=== PATIENT | female | born 1975 | race Caucasian/White ===

== ENCOUNTER 2016-11-18 13:20 | Emergency (ER) | payer SELFPAY ==
[2016-11-18 13:23] VITALS: BP 109/55; PULSE 95; TEMP 98.2; BMI 38.0
--- NOTE | 2016-11-18 13:53 | PDOC ---
History of Present Illness - General Chief Complaint: Injury Stated Complaint: LT KNEE PAIN Time Seen by Provider: 11/18/16 13:42 History Source: Parent(s) Exam Limitations: No Limitations - History of Present Illness Initial Comments: 11/18/16 14:20 CHIEF COMPLAINT: Left knee pain, status post fall HISTORY OF PRESENT ILLNESS: She is otherwise healthy 41-year-old female, denies any significant medical history currently on no medication presents [facility] department with a left knee pain states she slipped on water in her house and fell onto left knee now with left anterior knee pain. Patient denies twisting, there is no erythema edema, no bruising lacerations were deformity. Patient able to ambulate with a limp. REVIEW OF SYSTEMS: GENERAL: Afebrile, A&O x3 RESPIRATORY: No cough, wheezing, or hemoptysis. CARDIAC: No CP or SOB MUSCULOSKELETAL: Pain to left anterior knee pain. SKIN : No erythema, no edema, no bruising, no deformity. NEUROLOGICAL: Denies any numbness or tingling. PHYSICAL EXAM: GENERAL: The patient is awake, alert, and fully oriented, in no acute distress. HEAD: Normal with no signs of trauma. RESPIRATORY: Lungs clear bilaterally no rhonchi, rales, or wheezes CARDIAC: S1-S2 audible, no murmur rub or gallop EXTREMITIES: There is good range of motion to left knee with associated pain, no fluid appreciated, no bulge sign. No pain to superior or inferior patella. Negative drop test. Negative posterior leg test. No joint laxity noted, no ecchymosis, no deformity, no abrasions ,no edema. +3 popliteal pulse. Negative Homans sign. No calf pain or tenderness, no erythema or edema. MUSCULOSKELETAL: No spinal point tenderness. SKIN: Warm, Dry, normal turgor, no erythema, no edema no bruising. Past History - Past Medical History Allergies/Adverse Reactions: Allergies Allergy/AdvReac Type Severity Reaction Status Date / Time No Known Allergies Allergy Verified 11/18/16 13:23 Home Medications: Ambulatory Orders No Home Medications 0 dose .ROUTE UTDICT 10/02/12 Ibuprofen [Motrin -] 600 mg PO TID #21 tablet 11/18/16 - Suicide/Smoking/Psychosocial Hx Smoking Status: No Smoking History: Never smoked Number of Cigarettes Smoked Daily: 0 Hx Alcohol Use: No Drug/Substance Use Hx: No *Physical Exam - Vital Signs Last Vital Signs Temp Pulse Resp BP Pulse Ox 98.2 F 95 H 20 109/55 98 11/18/16 13:20 11/18/16 13:20 11/18/16 13:20 11/18/16 13:20 11/18/16 13:20 Medical Decision Making - Medical Decision Making 11/18/16 14:23 A/P: Patient here for evaluation of left knee pain status post fall. No deformity noted to knee however patient complains of pain with movement. Will perform x-ray to rule out acute fracture however low suspicion. Urine sent. X-rays negative for acute fracture we'll DC patient home, anti-inflammatories, follow-up with orthopedics in 1 week pain persists. Ice and elevate when at rest I discussed the physical exam findings, ancillary test results and final diagnoses with the patient. I answered all of the patient's questions. The patient was satisfied with the care received and felt comfortable with the discharge plan and treatment plan. The patient will call to arrange follow-up and will return to the Emergency Department with any new, persisting or worsening symptoms. *DC/Admit/Observation/Transfer Diagnosis at time of Disposition: Accidental fall Qualifiers: Encounter type: initial encounter Qualified Code(s): W19.XXXA - Unspecified fall, initial encounter Left knee pain Qualifiers: Chronicity: acute Qualified Code(s): M25.562 - Pain in left knee - Discharge Dispostion Disposition: HOME Condition at time of disposition: Good Admit: No - Prescriptions Prescriptions: Ibuprofen [Motrin -] 600 mg PO TID #21 tablet - Referrals Referrals: Sacha Tompkins MD [Staff Physician] - - Patient Instructions Printed Discharge Instructions: DI for Knee Pain Additional Instructions: 1. Please return to the emergency department with any redness, swelling, increased pain, or any other concerns. 2. Please follow up in the office of Dr. Tompkins within a week if pain persists. 3. No weightbearing 4. Ice and elevate when at rest. 5. Motrin for pain
== END 2016-11-18 14:30 | disposition home or self-care (01) ==
LOC: JERFT 13:20
DX: M25.562 Pain in left knee (principal); W01.0XXA Fall on same level from slipping, tripping and stumbling without subsequent striking against object, initial encounter; Y93.89 Activity, other specified; Y92.038 Other place in apartment as the place of occurrence of the external cause
CPT/HCPCS: 73562-TC-LT; 84703; 99281-25

== ENCOUNTER 2017-03-13 07:14 | Day surgery (SDC) | payer OTHER ==
[2017-03-12 13:06] VITALS: BMI 40.2
[2017-03-13] MEDS ORDERED: LIDOCAINE HCL/PF 2% SDV 5ML VIAL ONE (08:08)
[2017-03-13] MEDS ORDERED: PROPOFOL 20 ML ONE ×5 (08:08)
[2017-03-13] MEDS ORDERED: METOCLOPRAMIDE HCL INJECTION 10 MG/2 ML VIAL ONE (08:08)
[2017-03-13 08:34] VITALS: TEMP 97.8
[2017-03-13 09:12] VITALS: BP 122/65; PULSE 76
== END 2017-03-13 09:19 | disposition home or self-care (01) ==
LOC: JASU-ENDO 07:14
PROVIDERS: ATTEND Surgery
PROC: 0DJ08ZZ Inspection of Upper Intestinal Tract, Via Natural or Artificial Opening Endoscopic (ICD-10-PCS; principal; 2017-03-13 08:30)
DX: K29.70 Gastritis, unspecified, without bleeding (principal); Z01.818 Encounter for other preprocedural examination
CPT/HCPCS: 84703

== ENCOUNTER 2017-04-12 06:09 | Inpatient (IN) | payer OTHER ==
[2017-04-11 13:55] VITALS: BMI 41.0
[~2017-04-12 06:09] MED LIST: BUPIVACAINE HCL/PF 0.5% (5MG/ML) 10 ML VIAL IJ ONE
[2017-04-12] MEDS ORDERED: MIDAZOLAM HCL 2 MG/2 ML SINGLE DOSE VIAL ONE (06:56)
[2017-04-12] MEDS ORDERED: fentaNYL CITRATE 250 MCG/5 ML VIAL ONE (06:56)
[2017-04-12] MEDS ORDERED: LIDOCAINE HCL 2% 100 MG/5 ML DISP.SYRIN ONE (06:56)
[2017-04-12] MEDS ORDERED: ROCURONIUM BROMIDE 50 MG/5 ML VIAL ONE (06:56)
[2017-04-12] MEDS ORDERED: SUCCINYLCHOLINE CHLORIDE 200 MG/10 ML VIAL ONE (06:56)
[2017-04-12] MEDS ORDERED: DEXAMETHASONE SOD PHOSPHATE 4 MG/1 ML VIAL ONE (06:56)
[2017-04-12] MEDS ORDERED: PROPOFOL 20 ML ONE (06:56)
--- NOTE | 2017-04-12 08:09 | HP ---
History & Physical Update - History History: No Change - Physical Physical: No Change - Assessment Assessment: No Change - Plan Plan: No Change (Laparoscopic possible open vertical sleeve gastrectomy possible liver biopsy, upper endoscopy)
[2017-04-12] MEDS ORDERED: ceFAZolin SODIUM 1 GM VIAL IVPB ONE (09:10)
[2017-04-12] MEDS ORDERED: ceFAZolin SODIUM 1 GM VIAL ONE (09:11)
[2017-04-12] MEDS ORDERED: ePHEDrine SULFATE 50 MG/1 ML AMPULE ONE (09:35)
[2017-04-12] MEDS ORDERED: BUPIVACAINE HCL/PF 0.5% (5MG/ML) 10 ML VIAL IJ ONE (10:47)
[2017-04-12] MEDS: SODIUM CHLORIDE 1,000 ML IV SCH (11:00)
[2017-04-12] MEDS ORDERED: ONDANSETRON 4 MG/2 ML VIAL IVPUSH PRN (11:06)
[2017-04-12] MEDS ORDERED: METOCLOPRAMIDE HCL INJECTION 10 MG/2 ML VIAL ONE (11:09)
[2017-04-12] MEDS ORDERED: ACETAMINOPHEN INJECTION 100 ML IVPB ONE (11:09)
--- NOTE | 2017-04-12 11:13 | OP ---
Operative Note - Note: Operative Date: 04/12/17 Pre-Operative Diagnosis: Morbid obesity Operation: Laparoscopic vertical sleeve gastrectomy. Laparoscopic lysis of adhesions. Laparoscopic wedge liver biopsy. Open umbilical hernia repair. EGD Findings: No leak/obstruction; umbilical hernia, intraabdominal adhesions Post-Operative Diagnosis: Other (Morbido besity, hepatomegaly) Surgeon: Cruz Armstrong Facilities Manager: Donato Russell Anesthesia: General Specimens Removed: Greater curvature of stomach. Liver biopsy Estimated Blood Loss (mls): 30 Drains & Tubes with Location: 36 Fr bougie Operative Report Dictated: Yes
[2017-04-12] MEDS ORDERED: ACETAMINOPHEN 1000 MG/100 ML VIAL (NON FORMULARY) IVPB SCH ×2 (11:15→12:32)
[2017-04-12] MEDS ORDERED: LACTATED RINGERS SOLUTION 1,000 ML IV SCH (11:15)
[2017-04-12] MEDS ORDERED: METOCLOPRAMIDE HCL INJECTION 10 MG/2 ML VIAL IVPUSH SCH ×2 (11:15→12:33)
[2017-04-12] MEDS ORDERED: FAMOTIDINE 20 MG/50 ML IVPB 20 MG/50 ML MG IVPB ONE (11:23)
[2017-04-12] MEDS ORDERED: FAMOTIDINE 20 MG PREMIXED IVPB IVPB ONE (12:00)
[2017-04-12] MEDS ORDERED: HYDROmorphone HCL CARPU-JECT 4 MG/1 ML DISP.SYRIN ONE (12:12)
[2017-04-12] MEDS: HYDROmorphone HCL CARPU-JECT 1 MG/1 ML DISP.SYRIN IVPB PRN ×3 (12:15→20:51)
--- NOTE | 2017-04-12 12:40 | SPEC ---
DATE OF OPERATION: 04/12/2017 SURGEON: Jean Armstrong MD DRAINAGE INSPECTOR: Donato Russell MD PREOPERATIVE DIAGNOSES: 1. Morbid obesity. 2. Body mass index of 41.0. POSTOPERATIVE DIAGNOSES: 1. Morbid obesity. 2. Body mass index of 41.0. 3. Hepatomegaly. PROCEDURE: 1. Diagnostic laparoscopy. 2. Laparoscopic vertical sleeve gastrectomy. 3. Laparoscopic lysis of adhesions. 4. Laparoscopic umbilical hernia repair. 5. Laparoscopic wedge liver biopsy. 6. Esophagogastroduodenoscopy. SPECIMENS: 1. Greater curvature of the stomach. 2. Wedge liver biopsy. ESTIMATED BLOOD LOSS: 30 mL. DRAINS: None. ANESTHESIA: GET. BOUGIE SIZE: 36-Mongolian. INDICATION FOR PROCEDURE: This is a 41-year-old female who presented to the office for weight loss options. After describing different options, she decided to proceed with a laparoscopic, possible open vertical sleeve gastrectomy, possible liver biopsy and upper endoscopy. The risks and benefits of the procedure were explained. RISKS AND BENEFITS: After describing the different options for management of weight loss, the patient decided to proceed with a robotic laparoscopic, possible open vertical sleeve gastrectomy. The patient was seen by the respective subspecialities and cleared for surgery. The risks and benefits of the procedure were explained. These included bleeding, infection, hernia, TX, DVT, PE, injury to surrounding structures including the liver, colon, bowel, spleen, esophagus, vessel injury, nerve injury, weight regain, gastric leak, staple line leak, sleeve leak, obstruction, vitamin deficiency, hair loss and as some of the possible complications. The patient understood and signed informed consent. DESCRIPTION OF PROCEDURE: The patient was placed supine on the operating room table. The patient underwent general endotracheal intubation. A Riojas catheter was inserted by the nursing staff. The arms were brought out at 90 degrees and secured. A foot board was placed and the legs were secured laterally with padding. The abdomen was prepped and draped in the usual sterile fashion. A timeout was performed. An incision was made superior and to the left of the umbilicus. A Veress needle was inserted. Pneumoperitoneum was established. Subsequently the Veress needle was removed. An 8-mm robotic trocar was placed under direct visualization with the laparoscope. Inspection of the abdominal cavity was performed. An 8-mm trocar was then placed in the left abdominal wall approximately 6 to 7 cm to the left of the initial trocar. An 8-mm robotic trocar was then placed in the left abdominal wall approximately 6 to 7 cm to the left of the initial trocar. A 12-mm robotic trocar was then placed in the right abdominal wall approximately 6 to 7 cm to the right of the initial trocar and an 8-mm robotic trocar placed approximately 6 to 7 cm lateral to the 12-mm trocar. A stab wound was made in the subxiphoid area and a Evelyn clamp inserted and removed to dilate the tract. A Mg liver retractor was inserted. The post was secured at the bedside by the nursing staff. The patient was placed in steep reverse Trendelenburg position and the Mg liver retractor was used to secure the liver towards the anterior abdominal wall. The robot was brought over the field and docked. Dissection was performed at the console. The pylorus was identified and 6 cm proximal to it the lesser sac was entered using the vessel sealer. From this point cephalad all lateral attachments to the greater curvature of the stomach including the short gastric vessels were ligated using the vessel sealer towards the gastrosplenic and gastrophrenic ligaments. Once this was done in its entirety, all tubes within the nasal or oropharyngeal cavity including a temperature probe was confirmed to be removed by Anesthesia. The bougie was then inserted by Anesthesia. Transection of the stomach was then begun staying adjacent to the bougie but away from the angularis. Transection of the stomach was performed near the portion of the stomach where the lesser sac was entered. Two robotic green meena were used at this location. Robotic blue meena were then used for the remainder of the transection until the greater curvature of the stomach was fully transected. Again this was done staying close to the bougie. Care was taken to stay away from the angle of His cephalad. The staple line was then inspected. Hemostasis was identified. A leak test was then performed. The stomach was clamped distally to the staple line. Irrigation solution was placed in the left upper quadrant and air insufflated by Anesthesia into the sleeve. No leaks were identified and no obstruction was identified. This was done throughout the staple line. At this point, the irrigation solution was suctioned and again hemostasis noted. A wedge liver biopsy was then performed. A portion of the left lobe of the liver was identified and an edge of it grasped. Using electrocautery a wedge of this portion of the liver was excised. The specimen was removed from the abdominal cavity and sent off the field. Hemostasis of the biopsy site was attained using electrocautery. The robotic instruments were then removed. The robot was undocked from the operative field. The 12-mm robotic trocar was removed and the greater curvature specimen removed from this site using a sponge stick peralta. The specimen was inspected and the Veress needle inserted. The specimen insufflated adequately and no leak was identified. The staple line was noted to be straight and intact. A Pankaj-Dieter device was then used to close the fascia with a 0 Vicryl suture at this site. The liver retractor was removed under direct visualization. Pneumoperitoneum was desufflated and the fascial suture was secured. Hemostasis was noted at all incision sites and Marcaine was injected at all incision sites. All incision sites were closed using 4-0 Biosyn. Sterile dressings were applied. Please note at the beginning of the case there was also noted to be extensive intraabdominal adhesions. These were carefully lysed. No injury to any intraabdominal structures was noted and hemostasis was noted. In addition, there was noted to be an umbilical hernia. At the end of the case, the 15-mm trocar which was placed through the umbilical hernia was closed with a 0 Vicryl suture in a figure-of-8 fashion. In addition, upper endoscopy was performed to further evaluate for leak/obstruction. The endoscope was inserted into the patient's mouth. The entirety of the esophagus, GE junction, gastric pouch were inspected. Hemostasis was noted. No leak or obstruction was noted. The endoscope was fully removed. The patient tolerated the procedure well, transferred to the recovery room in stable condition. JEAN ARMSTRONG M.D. [id number]
[2017-04-12] MEDS ORDERED: LABETALOL HCL 5 MG/1 ML (100MG/20 ML VIAL) ONE (12:49)
[2017-04-12 12:57] LABS: HEMATOCRIT 33.6 % (32.4-45.2); HEMOGLOBIN 10.6 GM/dL (10.7-15.3); MCH 28.3 pg (25.7-33.7); MCHC 31.6 g/dl (32.0-36.0); MEAN CELL VOLUME 89.6 fl (80-96); MEAN PLT VOLUME 8.3 fl (7.5-11.1); PLATELET COUNT 223 K/MM3 (134-434); RBC 3.75 M/mm3 (3.60-5.2); RDW 13.6 % (11.6-15.6); WHITE BLOOD COUNT 11.4 K/mm3 (4.0-10.0)
[2017-04-12 13:26] LABS: ALBUMIN 2.1 g/dl (3.4-5.0); ALK PHOS 93 U/L (45-117); ANION GAP 13 (8-16); BILIRUBIN,TOTAL 0.3 mg/dL (0.2-1.0); BLOOD UREA NITROGEN 6 mg/dL (7-18); CALCIUM 7.2 mg/dL (8.5-10.1); CHLORIDE 106 mmol/L (98-107); CO2 19 mmol/L (21-32); CREATININE 0.5 mg/dL (0.55-1.02); GLUCOSE,RANDOM 101 mg/dL (74-106); SGOT/AST 56 U/L (15-37); SGPT/ALT 57 U/L (12-78); SODIUM 138 mmol/L (136-145); TOT PROT 4.5 g/dl (6.4-8.2)
[2017-04-12] MEDS ORDERED: ONDANSETRON 4 MG/2 ML VIAL IVPUSH SCH (14:00)
[2017-04-12] MEDS ORDERED: HYDROmorphone HCL CARPU-JECT 1 MG/1 ML DISP.SYRIN IVPUSH PRN (14:49)
[2017-04-12] MEDS: ACETAMINOPHEN 1000 MG/100 ML VIAL (NON FORMULARY) IVPB SCH (17:50)
[2017-04-12] MEDS: ONDANSETRON 4 MG/2 ML VIAL IVPUSH SCH ×2 (17:51→21:01)
[2017-04-12] MEDS: METOCLOPRAMIDE HCL INJECTION 10 MG/2 ML VIAL IVPUSH SCH (17:51)
[2017-04-12] MEDS: ENOXAPARIN NA (PORCINE) 40 MG/0.4 ML DISP.SYRIN SQ SCH (21:01)
[2017-04-12] MEDS: FAMOTIDINE 20 MG/50 ML IVPB 20 MG/50 ML MG IVPB SCH (21:01)
[2017-04-12] MEDS ORDERED: FAMOTIDINE 20 MG/50 ML IVPB 20 MG/50 ML MG IVPB SCH (22:00)
[2017-04-12] MEDS ORDERED: PT OWN MED DRAWER 7, Y5N ONE (22:42)
[2017-04-13] MEDS: ACETAMINOPHEN 1000 MG/100 ML VIAL (NON FORMULARY) IVPB SCH ×2 (00:01→06:36)
[2017-04-13] MEDS: METOCLOPRAMIDE HCL INJECTION 10 MG/2 ML VIAL IVPUSH SCH ×4 (00:01→17:00)
[2017-04-13] MEDS: SODIUM CHLORIDE 1,000 ML IV SCH ×5 (00:02→19:54)
[2017-04-13] MEDS: ONDANSETRON 4 MG/2 ML VIAL IVPUSH SCH ×6 (01:45→21:49)
[2017-04-13] MEDS: HYDROmorphone HCL CARPU-JECT 1 MG/1 ML DISP.SYRIN IVPB PRN ×4 (02:45→16:29)
[2017-04-13 06:49] LABS: HEMATOCRIT 33.8 % (32.4-45.2); HEMOGLOBIN 11.4 GM/dL (10.7-15.3); MCH 29.5 pg (25.7-33.7); MCHC 33.8 g/dl (32.0-36.0); MEAN CELL VOLUME 87.5 fl (80-96); MEAN PLT VOLUME 9.1 fl (7.5-11.1); PLATELET COUNT 272 K/MM3 (134-434); RBC 3.86 M/mm3 (3.60-5.2); RDW 13.6 % (11.6-15.6); WHITE BLOOD COUNT 9.7 K/mm3 (4.0-10.0)
[2017-04-13 07:04] LABS: CHLORIDE 105 mmol/L (98-107); POTASSIUM 4.1 mmol/L (3.5-5.1); SODIUM 138 mmol/L (136-145)
[2017-04-13 07:10] LABS: ALBUMIN 2.6 g/dl (3.4-5.0); ALK PHOS 114 U/L (45-117); ANION GAP 10 (8-16); BILIRUBIN,TOTAL 0.5 mg/dL (0.2-1.0); BLOOD UREA NITROGEN 6 mg/dL (7-18); CALCIUM 7.5 mg/dL (8.5-10.1); CO2 23 mmol/L (21-32); CREATININE 0.5 mg/dL (0.55-1.02); GLUCOSE,RANDOM 92 mg/dL (74-106); SGOT/AST 57 U/L (15-37); SGPT/ALT 65 U/L (12-78); TOT PROT 5.5 g/dl (6.4-8.2)
[2017-04-13] MEDS: ENOXAPARIN NA (PORCINE) 40 MG/0.4 ML DISP.SYRIN SQ SCH ×2 (08:59→21:49)
[2017-04-13] MEDS: FAMOTIDINE 20 MG/50 ML IVPB 20 MG/50 ML MG IVPB SCH ×2 (08:59→21:47)
[2017-04-13] MEDS ORDERED: FLU VACCINE QUAD 60 MCG/0.5 ML (MDV 17-18) IM ONE (14:00)
--- NOTE | 2017-04-13 15:30 | PN ---
Progress Note (short form) - Note Progress Note: Anesthesia Pt seen and examined S:Alert and awake O: Vital Signs Temperature 99.8 F H 04/13/17 14:40 Pulse Rate 94 H 04/13/17 14:40 Respiratory Rate 16 04/13/17 14:40 Blood Pressure 148/93 04/13/17 14:40 O2 Sat by Pulse Oximetry (%) 97 04/13/17 09:00 CBC, BMP 04/13/17 05:30 04/13/17 05:30 A/P: Current Active Problems Body mass index (BMI) of 40.1 to 44.9 in adult (Acute) Hepatomegaly (Acute) Intra-abdominal adhesions (Acute) Morbid obesity due to excess calories (Acute) Umbilical hernia (Acute) s/p lap sleeve gastrectomy Doing well post op Continue current care Lyle Crane MD
--- NOTE | 2017-04-13 17:04 | PATH ---
Surgical Pathology Report Patient Name: FIDELIA SANDRA [facility]. Rec. #: [id number] /Age/Gender: 1975 (Age: 41) / F Account: [id number] Location: 4 PEDS/ADOL Taken: 04/12/2017 Received: 04/12/2017 Reported: 04/13/2017 Physicians: Cruz Armstrong M.D. Specimen(s) Received A: GREATER CURVATURE STOMACH B: LIVER BIOPSY Clinical History Morbid obesity Final Diagnosis A. STOMACH, GREATER CURVATURE, LAPAROSCOPIC VERTICAL SLEEVE GASTRECTOMY: PORTION OF STOMACH WITH MILD CHRONIC GASTRITIS. IMMUNOHISTOCHEMICAL STAIN FOR H. PYLORI IS NEGATIVE. B. LIVER, BIOPSY: LIVER PARENCHYMA WITH MINIMAL STEATOSIS (< 1%). NO INCREASE IN IRON AND FIBROSIS ON PERFORMED SPECIAL STAINS (IRON AND TRICHROME). Electronically Signed Idania Low M.D. Gross Description A. Received in formalin, labeled "greater curvature of stomach," is a 70 gram, 13.0 x 3.3 x 3.2 cm. portion of stomach with a stapled margin of resection. The serosa is trotter-nicole with minimal attached fat. The mucosa is trotter-pink with normal folds. No mucosal masses are identified. Rn Orthopedic sections are submitted in one cassette. B. Received in formalin labeled "liver biopsy," is a 1.4 x 1.2 x 0.6 cm trotter, irregular portion of soft tissue, consistent with a liver biopsy. The specimen is bisected and entirely submitted in one cassette. 04/12/201704/12/2017
[2017-04-13] MEDS: oxyCODONE HCL 5 MG TABLET PO PRN (19:53)
[2017-04-13] MEDS: ACETAMINOPHEN 325 MG TABLET (FP) PO PRN (19:54)
--- NOTE | 2017-04-13 20:50 | PN ---
Progress Note (short form) - Note Progress Note: POD 1 Pain controlled No Nausea Vital Signs Period Temp Pulse Resp BP Sys/Lau Pulse Ox Last 24 Hr 99 F-99.8 F 69-94 16-20 128-151/80-93 97-98 Abd soft CBC, BMP 04/13/17 05:30 04/13/17 05:30 UGI: no leak/obstruction Clears Ambulate
[2017-04-13 21:57] VITALS: TEMP 99.8
[2017-04-14] MEDS: ACETAMINOPHEN 325 MG TABLET (FP) PO PRN ×2 (01:03→11:00)
[2017-04-14] MEDS: METOCLOPRAMIDE HCL INJECTION 10 MG/2 ML VIAL IVPUSH SCH ×2 (01:03→06:16)
[2017-04-14] MEDS: oxyCODONE HCL 5 MG TABLET PO PRN ×2 (01:04→11:00)
[2017-04-14] MEDS: ONDANSETRON 4 MG/2 ML VIAL IVPUSH SCH ×3 (02:23→09:46)
[2017-04-14] MEDS: HYDROmorphone HCL CARPU-JECT 1 MG/1 ML DISP.SYRIN IVPB PRN ×2 (06:16→09:39)
[2017-04-14 07:01] VITALS: BP 135/90; PULSE 87
[2017-04-14] MEDS ORDERED: PT OWN MED DRAWER 7, Y5N ONE (07:05)
[2017-04-14] MEDS: FAMOTIDINE 20 MG/50 ML IVPB 20 MG/50 ML MG IVPB SCH (09:39)
[2017-04-14] MEDS: ENOXAPARIN NA (PORCINE) 40 MG/0.4 ML DISP.SYRIN SQ SCH (09:42)
== END 2017-04-14 12:06 | disposition home or self-care (01) | DRG 403 ==
LOC: JSAMEDAYSX 06:09 → EDSTATUS 11:00 → J4S 15:53
PROVIDERS: ADMIT Surgery; ATTEND Surgery
PROC: 0DNW4ZZ Release Peritoneum, Percutaneous Endoscopic Approach (ICD-10-PCS; 2017-04-12)
PROC: 0DJ08ZZ Inspection of Upper Intestinal Tract, Via Natural or Artificial Opening Endoscopic (ICD-10-PCS; 2017-04-12)
PROC: 8E0W8CZ Robotic Assisted Procedure of Trunk Region, Via Natural or Artificial Opening Endoscopic (ICD-10-PCS; 2017-04-12)
PROC: 0DB64Z3 Excision of Stomach, Percutaneous Endoscopic Approach, Vertical (ICD-10-PCS; principal; 2017-04-12 08:15)
PROC: 0FB24ZX Excision of Left Lobe Liver, Percutaneous Endoscopic Approach, Diagnostic (ICD-10-PCS; 2017-04-12 08:15)
PROC: 0WQF4ZZ Repair Abdominal Wall, Percutaneous Endoscopic Approach (ICD-10-PCS; 2017-04-12 08:15)
DX: E66.01 Morbid (severe) obesity due to excess calories (principal); Z68.39 Body mass index [BMI] 39.0-39.9, adult; R16.0 Hepatomegaly, not elsewhere classified; K42.9 Umbilical hernia without obstruction or gangrene; K66.0 Peritoneal adhesions (postprocedural) (postinfection)
CPT/HCPCS: 36415; 74241-TC-FY; 80053; 84703; 85027; 86850; 86900; 86901; 88307-TC; 90688; 94010; 94760

== ENCOUNTER 2017-11-27 06:45 | Day surgery (SDC) | payer OTHER ==
[2017-11-26 15:52] VITALS: BMI 30.7
[2017-11-27 08:45] VITALS: TEMP 98.1
--- NOTE | 2017-11-27 09:04 | OP ---
DATE OF OPERATION: 11/27/2017 SURGEON: Jean Armstrong MD PREOPERATIVE DIAGNOSES: Stall in weight loss after a vertical sleeve gastrectomy in the past. POSTOPERATIVE DIAGNOSES: No dilation of the gastric pouch/sleeve. PROCEDURE: Esophagogastroduodenoscopy/upper endoscopy. ESTIMATED BLOOD LOSS: 0 mL. DRAINS: None. ANESTHESIA: MAC. REASON FOR PROCEDURE: This is a 42-year-old female who presents to the office for a weight stall after a vertical sleeve gastrectomy in the past. She has lost about 40 pounds, but since then, has been having difficulty losing more weight. In order to evaluate for anatomy, an upper endoscopy was performed. The patient consented. The risks and benefits of the procedure were explained. These included bleeding, infection, injury to the oral cavity, esophagus, GE junction, stomach, duodenum, perforation, stricture, MS, DVT, PE, and some other complications. She understood and signed informed consents. DESCRIPTION OF PROCEDURE: Patient was placed in the left lateral decubitus position. MAC was administered by Anesthesia. Time-out was performed. The endoscope was placed into the patients mouth and advanced into the esophagus, GE junction and gastric pouch up to the level of the pylorus and into the duodenum. No evidence of any dilation of the gastric pouch or sleeve was noted. It was normal postoperative vertical sleeve gastrectomy anatomy. The endoscope was used to suction the stomach, and the endoscope fully removed. Again, there was no dilation of the gastric pouch/sleeve. The patient will again be counseled further for nutritional and exercise advice to help with further weight loss. JEAN ARMSTRONG M.D. [id number]
[2017-11-27 09:20] VITALS: BP 104/74; PULSE 67
== END 2017-11-27 09:51 | disposition home or self-care (01) ==
LOC: JASU-ENDO 06:45
PROVIDERS: ATTEND Surgery
PROC: 0DJ08ZZ Inspection of Upper Intestinal Tract, Via Natural or Artificial Opening Endoscopic (ICD-10-PCS; principal; 2017-11-27 08:30)
DX: Z13.810 Encounter for screening for upper gastrointestinal disorder (principal); E66.01 Morbid (severe) obesity due to excess calories; Z68.30 Body mass index [BMI] 30.0-30.9, adult; Z98.84 Bariatric surgery status
CPT/HCPCS: 84703